=== PATIENT | female | born 1960 | race Two or more races ===

== ENCOUNTER → 2021-06-16 | Outpatient (CLI) | payer OTHER | END | disposition home or self-care (01) | LOC: XYW 13:10 | PROVIDERS: ATTEND Internal Medicine | DX: I10 Essential (primary) hypertension (principal); R07.9 Chest pain, unspecified | CPT/HCPCS: 93306 ==

== ENCOUNTER → 2021-07-13 | Outpatient (CLI) | payer OTHER ==
[2021-07-13 11:24] LABS: Eosinophils # (auto) 0.1 10 ^3/uL (0-0.8); Monocytes # (auto) 0.5 10 ^3/uL (0-1.3); Red Cell Distribution Width 17.5 % (11.8-14.3)
[2021-07-13 11:27] LABS: Basophils # (auto) 0 10 ^3/uL (0-0.2); Basophils % (auto) 0.6 % (0.0-2.0); Eosinophils % (auto) 1.8 % (0.0-7.0); Hematocrit 30.5 % (36.0-46.0); Hemoglobin 9.8 g/dL (12.2-16.2); Mean Corpuscular Hemoglobin 24.8 pg (28.0-32.0); Mean Corpuscular Hgb Conc. 32.2 g/dL (32.0-36.0); Mean Corpuscular Volume 76.8 fL (80.0-100.0); Monocytes % (auto) 6.9 % (0.0-12.0); Neutrophils # (auto) 4.3 10 ^3/uL (1.6-8.6); Neutrophils % (auto) 61.7 % (37.0-80.0); Red Blood Cells 3.97 10^6/uL (4.0-5.20); White Blood Cell 6.9 10^3/uL (4.4-10.8)
[2021-07-13 11:31] LABS: Urine Bacteria NONE SEEN /hpf (None Seen); Urine Blood Negative /uL (Negative); Urine Specific Gravity 1.009 (1.001-1.035); Urine WBC <1 /hpf (0 - 5)
[2021-07-13 12:19] LABS: Potassium 4.2 mmol/L (3.5-5.1)
[2021-07-13 12:29] LABS: Albumin 3.3 g/dL (3.4-5.0); BUN/Creatinine Ratio 11.9; Bilirubin, Total 0.3 mg/dL (0.2-1.0); CRP High Sensitivity 0.44 mg/dL (< 0.3); Calcium 8.6 mg/dL (8.5-10.1); Total Protein 6.9 g/dL (6.4-8.2)
== END | disposition home or self-care (01) ==
LOC: LAB 10:08
PROVIDERS: ATTEND Internal Medicine Rheumatology
DX: M32.10 Systemic lupus erythematosus, organ or system involvement unspecified (principal); R94.5 Abnormal results of liver function studies
CPT/HCPCS: 36415; 80053; 81001; 85025; 85652; 86141

== ENCOUNTER → 2021-07-23 | Outpatient (CLI) | payer OTHER | END | disposition home or self-care (01) | LOC: LAB 13:14 | PROVIDERS: ATTEND Internal Medicine | DX: Z12.11 Encounter for screening for malignant neoplasm of colon (principal); I10 Essential (primary) hypertension | CPT/HCPCS: 36415; 82043; 82550 ==

== ENCOUNTER → 2021-07-29 | Outpatient (CLI) | payer OTHER ==
[~2021-07-29] MED LIST: ALBUAER3 IN; ATOR20TA PO; BACL20TA PO; DICL50TA4 PO; FLUT1SPR5; GABA400C PO; METF-370 PO; METO25TA5 PO; NALO4SPR2; NORT25CA PO; OXYC325T14 PO; PANT1INJ3 PO; QUET1TAB11 PO; SUMA50TA2 PO; TOPI100T68 PO; TRAZ100T3 PO; VENL150C58 PO; VENL75CA78 PO
== END | disposition home or self-care (01) ==
LOC: LAB 12:00
PROVIDERS: ATTEND Internal Medicine
DX: Z12.11 Encounter for screening for malignant neoplasm of colon (principal); I10 Essential (primary) hypertension; E78.5 Hyperlipidemia, unspecified
CPT/HCPCS: 82270

== ENCOUNTER 2021-07-31 13:17 | Day surgery (SDC) | payer OTHER ==
[2021-07-29 11:27] LABS: Basophils # (auto) 0 10 ^3/uL (0-0.2); Eosinophils # (auto) 0.2 10 ^3/uL (0-0.8); Hemoglobin 10.4 g/dL (12.2-16.2); Monocytes # (auto) 0.4 10 ^3/uL (0-1.3)
[2021-07-29 11:29] LABS: Basophils % (auto) 0.7 % (0.0-2.0); Eosinophils % (auto) 2.4 % (0.0-7.0); Lymphocytes # (auto) 2.3 10 ^3/uL (0.4-5.4); Lymphocytes % (auto) 34.4 % (10.0-50.0); Mean Corpuscular Hemoglobin 24.2 pg (28.0-32.0); Mean Corpuscular Hgb Conc. 31.6 g/dL (32.0-36.0); Mean Corpuscular Volume 76.5 fL (80.0-100.0); Monocytes % (auto) 6.1 % (0.0-12.0); Neutrophils # (auto) 3.8 10 ^3/uL (1.6-8.6); Neutrophils % (auto) 56.4 % (37.0-80.0); Red Blood Cells 4.31 10^6/uL (4.0-5.20); Red Cell Distribution Width 17.2 % (11.8-14.3); White Blood Cell 6.7 10^3/uL (4.4-10.8)
[2021-07-29 11:41] LABS: INR 0.99 (0.9-1.15); Partial Thromboplastin Time 27.1 sec (23.6-33.0)
[2021-07-29 11:54] LABS: Potassium 3.8 mmol/L (3.5-5.1)
[2021-07-29 11:59] LABS: Albumin 3.4 g/dL (3.4-5.0); BUN/Creatinine Ratio 9.3; Bilirubin, Total 0.2 mg/dL (0.2-1.0); Calcium 8.9 mg/dL (8.5-10.1); Total Protein 7.1 g/dL (6.4-8.2)
[~2021-07-31] VITALS: Ht 160 cm; Wt 105.7 kg
[2021-07-31] MEDS ORDERED: LIDOCAINE VISCOUS 2% 15ML UD ONE (13:56)
[2021-07-31] MEDS: fentaNYL CITRATE 100 MCG/2 ML VL ONE ×5 (14:04→14:28)
[2021-07-31] MEDS: diphenhdrAMINE HCL 50 MG/1 ML VL ONE ×2 (14:04→14:18)
[2021-07-31] MEDS: MIDAZOLAM HCL 5 MG/ML-1ML VIAL ONE ×4 (14:04→14:18)
[2021-07-31 15:00] VITALS: BP 124/57
== END 2021-07-31 15:30 | disposition home or self-care (01) ==
LOC: GI 13:17
PROVIDERS: ATTEND Internal Medicine Gastroenterology
DX: R19.4 Change in bowel habit (principal); K57.30 Diverticulosis of large intestine without perforation or abscess without bleeding; K64.8 Other hemorrhoids; K63.89 Other specified diseases of intestine; K21.9 Gastro-esophageal reflux disease without esophagitis; K29.50 Unspecified chronic gastritis without bleeding; K44.9 Diaphragmatic hernia without obstruction or gangrene; F41.9 Anxiety disorder, unspecified; F32.A Depression, unspecified; G47.30 Sleep apnea, unspecified; F17.200 Nicotine dependence, unspecified, uncomplicated; G43.909 Migraine, unspecified, not intractable, without status migrainosus; Z90.710 Acquired absence of both cervix and uterus; Z98.890 Other specified postprocedural states; Z79.899 Other long term (current) drug therapy; Z20.822 Contact with and (suspected) exposure to COVID-19
CPT/HCPCS: 36415; 43239; 45378; 80053; 85025; 85610; 85730; 88305; 88342; J1200; J2250; J3010; J7030; U0003; 99152; 99153

== ENCOUNTER → 2021-08-06 | Outpatient (CLI) | payer OTHER ==
[~2021-08-06] VITALS: Ht 160 cm; Wt 102.1 kg
[~2021-08-06] MED LIST changes: +ADENOSINE 86 MG in GIVE UN-DILUTED 0 ML IV ONE
== END | disposition home or self-care (01) ==
LOC: XYW 08:13
PROVIDERS: ATTEND Internal Medicine
DX: R07.9 Chest pain, unspecified (principal); R00.2 Palpitations; E78.5 Hyperlipidemia, unspecified; Z87.891 Personal history of nicotine dependence
CPT/HCPCS: 78452; 93017; A9500; J0153

== ENCOUNTER → 2021-08-06 | Outpatient (CLI) | payer OTHER ==
[~2021-08-06] MED LIST changes: -ADENOSINE 86 MG in GIVE UN-DILUTED 0 ML IV ONE
[2021-08-06 11:17] LABS: Amphetamine Screen, Urine NEGATIVE (NEGATIVE); Barbiturate Scree,Urine NEGATIVE (NEGATIVE); Benzodiazephine Screen, Urine NEGATIVE (NEGATIVE); Cannabinoid Screen, Urine NEGATIVE (NEGATIVE); Cocaine Screen, Urine NEGATIVE (NEGATIVE); Opiate Scree,Urine NEGATIVE (NEGATIVE); Phencyclidine Screen, Urine NEGATIVE (NEGATIVE)
== END | disposition home or self-care (01) ==
LOC: LAB 10:02
PROVIDERS: ATTEND Internal Medicine
DX: D64.9 Anemia, unspecified (principal); E78.5 Hyperlipidemia, unspecified; E66.01 Morbid (severe) obesity due to excess calories; F32.1 Major depressive disorder, single episode, moderate
CPT/HCPCS: 36415; 80307; 82306; 83036; 84443

== ENCOUNTER → 2021-10-19 | Outpatient (CLI) | payer OTHER ==
[2021-10-19 15:37] LABS: Urine Bacteria FEW /hpf (None Seen); Urine Blood Negative /uL (Negative); Urine Mucus FEW (None Seen); Urine Specific Gravity 1.022 (1.001-1.035); Urine WBC 3 /hpf (0 - 5)
[2021-10-19 15:40] LABS: Basophils # (auto) 0 10 ^3/uL (0-0.2); Basophils % (auto) 0.5 % (0.0-2.0); Eosinophils # (auto) 0.2 10 ^3/uL (0-0.8); Eosinophils % (auto) 1.7 % (0.0-7.0); Hemoglobin 11.1 g/dL (12.2-16.2); Lymphocytes # (auto) 2.3 10 ^3/uL (0.4-5.4); Lymphocytes % (auto) 26.3 % (10.0-50.0); Mean Corpuscular Hemoglobin 26.3 pg (28.0-32.0); Mean Corpuscular Hgb Conc. 31.7 g/dL (32.0-36.0); Mean Corpuscular Volume 83.1 fL (80.0-100.0); Monocytes # (auto) 0.6 10 ^3/uL (0-1.3); Monocytes % (auto) 7.1 % (0.0-12.0); Neutrophils # (auto) 5.6 10 ^3/uL (1.6-8.6); Neutrophils % (auto) 64.4 % (37.0-80.0); Red Blood Cells 4.22 10^6/uL (4.0-5.20); Red Cell Distribution Width 23.3 % (11.8-14.3); White Blood Cell 8.7 10^3/uL (4.4-10.8)
[2021-10-19 16:04] LABS: Albumin 3.5 g/dL (3.4-5.0); Calcium 8.9 mg/dL (8.5-10.1); Potassium 3.5 mmol/L (3.5-5.1)
[2021-10-19 16:09] LABS: BUN/Creatinine Ratio 11.8; Bilirubin, Total 0.2 mg/dL (0.2-1.0); CRP High Sensitivity 0.62 mg/dL (< 0.3); Total Protein 6.8 g/dL (6.4-8.2)
== END | disposition home or self-care (01) ==
LOC: LAB 14:53
PROVIDERS: ATTEND Internal Medicine
DX: M32.10 Systemic lupus erythematosus, organ or system involvement unspecified (principal); E11.9 Type 2 diabetes mellitus without complications; E78.5 Hyperlipidemia, unspecified; I10 Essential (primary) hypertension
CPT/HCPCS: 36415; 80053; 81001; 82043; 84443; 85025; 86141

== ENCOUNTER 2022-01-20 07:01 | Day surgery (SDC) | payer OTHER, MEDICAID ==
[2022-01-18 12:20] LABS: Basophils # (auto) 0 10 ^3/uL (0-0.2); Basophils % (auto) 0.4 % (0.0-2.0); Eosinophils # (auto) 0.1 10 ^3/uL (0-0.8); Eosinophils % (auto) 0.7 % (0.0-7.0); Hematocrit 38.9 % (36.0-46.0); Hemoglobin 12.9 g/dL (12.2-16.2); Lymphocytes # (auto) 1.7 10 ^3/uL (0.4-5.4); Lymphocytes % (auto) 19.5 % (10.0-50.0); Mean Corpuscular Hemoglobin 28.2 pg (28.0-32.0); Mean Corpuscular Volume 85.4 fL (80.0-100.0); Monocytes # (auto) 0.3 10 ^3/uL (0-1.3); Monocytes % (auto) 3.5 % (0.0-12.0); Neutrophils # (auto) 6.5 10 ^3/uL (1.6-8.6); Neutrophils % (auto) 75.9 % (37.0-80.0); Red Blood Cells 4.56 10^6/uL (4.0-5.20); Red Cell Distribution Width 14.7 % (11.8-14.3); White Blood Cell 8.5 10^3/uL (4.4-10.8)
[2022-01-18 12:40] LABS: INR 0.95 (0.9-1.15); Partial Thromboplastin Time 28.3 sec (24.6-33.4)
[2022-01-18 13:06] LABS: Albumin 3.6 g/dL (3.4-5.0); BUN/Creatinine Ratio 6.7; Bilirubin, Total 0.3 mg/dL (0.2-1.0); Calcium 9.2 mg/dL (8.5-10.1); Potassium 4.3 mmol/L (3.5-5.1); Total Protein 7.4 g/dL (6.4-8.2)
[~2022-01-20] VITALS: Ht 160 cm; Wt 90.3 kg
[2022-01-20] VITALS (8 sets, daily range): BP systolic 94–109; BP diastolic 43–59
[~2022-01-20 07:01] MED LIST changes: +DEXL60CA4 PO; -DICL50TA4 PO; -GABA400C PO; +HYDR-4795 PO; +LURA1TAB PO; -NORT25CA PO; -OXYC325T14 PO; -PANT1INJ3 PO
[2022-01-20] MEDS ORDERED: IOHEXOL 350 MG/ML 100ML IJ ONE (09:13)
[2022-01-20] MEDS ORDERED: ANGIOMAX 250 MG VIAL IV ONE (10:56)
[2022-01-20] MEDS ORDERED: fentaNYL CITRATE 100 MCG/2 ML VL ONE (10:56)
[2022-01-20] MEDS ORDERED: HEPARIN SODIUM (PORCINE) 5000 UNITS/ML 1ML VIAL ONE (10:56)
[2022-01-20] MEDS ORDERED: VERAPAMIL 2.5MG/ML INJ 2ML VIAL IV ONE (10:56)
[2022-01-20] MEDS ORDERED: SODIUM CHL 0.9% 0 ML ONE (10:57)
[2022-01-20] MEDS ORDERED: MIDAZOLAM HCL 2MG/2ML 2ml VIAL (1mg/ml) ONE (10:57)
[2022-01-20] MEDS ORDERED: IODIXANOL 320MG/ML 100ML BTL IV ONE ×2 (11:03→11:30)
[2022-01-20] MEDS ORDERED: LIDOCAINE 2%HCL (LOCAL ANESTH.) INJ 20ML MDV ONE (11:04)
== END 2022-01-20 14:00 | disposition home or self-care (01) ==
LOC: CATH 07:01
PROVIDERS: ATTEND Internal Medicine
DX: R07.9 Chest pain, unspecified (principal); R07.89 Other chest pain; R94.39 Abnormal result of other cardiovascular function study
CPT/HCPCS: 36415; 80053; 85025; 85610; 85730; 93458; C1769; C1887; C1894; J1644; J2250; J3010; Q9967; U0003; 99152; 99153

== ENCOUNTER 2025-02-19 08:17 | Inpatient (IN) | payer MEDICAID, OTHER ==
[~2025-02-19] VITALS: Ht 160 cm; Wt 95.2 kg
[~2025-02-19 08:17] MED LIST changes: +ARIP2TAB PO; +ATOG10TA PO; -BACL20TA PO; +BIOT5TAB4 PO; +BUPR-133 PO; +CETI10TA2 PO; +CYAN50008 PO; +CYCL-837 PO; +DULO20CA PO; +FAMO20TA10 PO; +LEFL10TA17 PO; -LURA1TAB PO; +METH2.5T PO; +MULT-1018 PO; +NITR0.4S29 SL; +NORT25CA PO; +OXYB10GE TOP; -QUET1TAB11 PO; +SEMA2INJ3 SC; +SULF500T37 PO; -SUMA50TA2 PO; +TRAZ-228 PO; -TRAZ100T3 PO; +TURM500C3 OR; +[UNRECOGNIZED DRUG - CODE] OR
--- NOTE | 2025-02-19 08:23 | DVHHP2 ---
Admitting Diagnosis: cervical spinal stenosis with neck pain and radiculopathy History of Present Illness Home Meds Reported Medications Biotin (Vitamin H) (Biotin) 5 Mg Tab, PO, TAB 02/18/25 Multiple Vitamin (Multivitamins) Tab, PO DAILY, #90 TAB 3 Refills 02/18/25 Mis Natural Products (GLUCOSAMINE CHONDROITIN D) Dbl Str Tab, OR, TAB 02/18/25 Cyanocobalamin (B12 Fast Dissolve) 5,000 Mcg Tab, PO, TAB 02/18/25 Curcuma Longa (Turmeric) Extra (TURMERIC) 500 Mg Cap, OR, CAP 02/18/25 Sulfasalazine (Sulfasalazine) 500 Mg Tab, 500 MG PO, TAB 02/18/25 Aripiprazole (Abilify) 2 Mg Tab, PO, TAB 02/18/25 Bupropion Hcl (Bupropion Hcl Er) 150 Mg Tab, PO, TAB 02/18/25 Methotrexate (Methotrexate) 2.5 Mg Tab, 8 TAB PO QWEEKLY, #32 TAB 2 Refills 02/18/25 Duloxetine Hcl (Cymbalta) 20 Mg Cap, PO, CAP 02/18/25 Famotidine (PEPCID TABLET) 20 Mg Tb, PO BID, #60 TAB 5 Refills 02/18/25 Leflunomide (Leflunomide) 10 Mg Tab, PO, TAB 02/18/25 Nortriptyline Hcl (PAMELOR CAPSULE) 25 Mg Cp, PO QPM, #30 CAP 3 Refills 02/18/25 Semaglutide (Ozempic) 2 Mg/3 Ml Inj, SC, INJ 02/18/25 Atogepant (Qulipta) 10 Mg Tab, PO, TAB 02/18/25 Cyclobenzaprine Hcl (Cyclobenzaprine Hcl) 5 Mg Tab, PO QPM, #30 TAB 02/18/25 Oxybutynin Chloride (Gelnique) 10 % Gel, TOP DAILY, #90 PACK 3 Refills 02/18/25 Nitroglycerin (Nitrostat) 0.4 Mg Sub, SL, INJ 02/18/25 Cetirizine Hcl (Kls Aller-Isabella) 10 Mg Tab, PO DAILY, #30 TAB 3 Refills 02/18/25 Hydrocodone-Acetaminophen (Hydrocodone Bitartrate/AC 7.5-325 mg) 1 Tab Tab, 1 TAB PO TIDP PRN for PAIN SCALE 7 THRU 10, TAB 01/18/22 Dexlansoprazole (Dexilant) 60 Mg Cap, 60 MG PO DAILY for GERD, CAP 01/18/22 Metoprolol Tartrate (Metoprolol Tartrate) 25 Mg Tab, 25 MG PO BIDAC for HTN for 30 Days, MG 01/18/22 Metformin Hydrochloride (Metformin Hcl) 500 Mg Tab, 500 MG PO DAILY for DIABETES, TAB 07/30/21 Venlafaxine Hcl (Venlafaxine Hcl Er) 150 Mg Cap, 150 MG PO QAM for ANXIETY, CAP 07/30/21 Venlafaxine Hcl (Venlafaxine Hcl Er) 75 Mg Cap, 75 MG PO QPM for ANXIETY, CAP 07/30/21 Trazodone Hcl (Trazodone Hcl) 100 Mg Tab, 100 MG PO QPM for DEPRESSION, TAB 07/30/21 Topiramate (Topiramate) 100 Mg Tab, 100 MG PO BID for DEPRESSION, TAB 07/30/21 Naloxone HCl (Narcan) 4 Mg/0.1 Ml Spr, 4 MG NA PRN for NORCO OVERDOSE, SPRAY 07/30/21 Atorvastatin Calcium (Lipitor) 20 Mg Tab, 20 MG PO QPM for HYPERLIPIDEMIA, TAB 07/30/21 Fluticasone Propionate (Nasal) (Flonase Allergy Relief) 50 Mcg/Act Spr, 50 MCG NA for ALLERGIES, SPRAY 07/30/21 Albuterol Sulfate (VENTOLIN MDI) 90 Mcg Ih, 2 PUFF IN Q4HPRN for ASTHMA, INH 07/30/21 Neck Pain Radiation: Head, Upper extremity Modifying Factors for Neck Nixon: None Associated Symptoms of Neck Pa: Muscle spasms, Numbness in upper extremi, Numbness in fingers, Tingling in fingers, Sensory loss, Motor loss Review of Systems Constitutional: No symptom reported Ears, Nose, & Throat: No symptom reported Eyes: No symptom reported Pulmonary/Respiratory: No symptom reported Cardiovascular: No symptom reported Gastrointestinal: No symptom reported Genitourinary: No symptom reported Musculoskeletal: Neck pain Skin: No symptom reported Endocrine: No symptom reported Hemotologic/Lymphatic: No symptom reported H&P Exam General Appeara: Well developed, Well nourished, Normal Appearance Head Exam: Normal inspection Neck Exam: Normal inspection, Non-tender, Normal alignment Eye Exam: bilateral eye Normal inspection, bilateral eye PERRL, bilateral eye EOMI Ear Exam: bilateral ear Auricle normal, bilateral ear Canal normal, bilateral ear TM normal Nasal Exam: Normal inspection Mouth: Normal Inspection Pulmonary/Respiratory: Normal inspection, Normal breath sounds, Chest non- tender, Lungs clear Cardiovascular/Chest: Normal inspection, Regular rate, Normal Rhythm Abdominal Exam: Normal bowel sounds, Soft, No tenderness, No hepatospenomegaly, No masses Rectal Exam: Deferred, Normal inspection Back Exam: Left CVA tenderness Pelvic Exam: Not done Male Genital Exam: Not done Shoulder Exam: Normal inspection, Non-tender, Normal ROM Elbow/Forearm Exam: Normal inspection, Non-tender, Normal ROM Wrist Exam: Normal inspection, Non-tender, Normal ROM Hand Exam: Normal inspection, Non-tender, Normal ROM Hip exam: Normal inspection, Non-tender, Normal range of motion Legs: bilateral leg non-tender, bilateral leg normal inspection, bilateral leg normal range of motion, bilateral leg no evidence of injury Knees: bilateral knee non-tender, bilateral knee normal inspection, bilateral knee normal range of motion, bilateral knee no evidence of injury Ankle Exam: bilateral ankle Normal inspection, bilateral ankle Non-tender, bilateral ankle Normal range of motion, bilateral ankle No evidence of injury Foot: bilateral foot non-tender, bilateral foot normal inspection, bilateral foot normal range of motion, bilateral foot no evidence of injury Tendon/ Neuro: 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 TECHNIQUE: Multiple axial CT images of the spine were obtained using bone algorithm. Axial and coronal reformatting was done. Bone and soft tissue windows were reviewed. FINDINGS: No CT evidence of definite acute fracture, spinal dislocation, or significant appearing acute subluxation is seen. Prior C5-C6 anterior spinal fixation with disc spacer. No severe spinal canal or foraminal stenosis. No evidence of epidural collection. Reversal of the cervical spine lordosis due to postsurgical change at C5-C6 level. C6-C7 left foraminal narrowing by the uncovertebral arthropathy and facet arthropathy. The visualized paraspinal soft tissues are grossly unremarkable. IMPRESSION: 1. No definite CT evidence of acute fracture or dislocation of the bony cervical spine. 2. C5-C6 expected postsurgical changes without significant spinal canal or foraminal narrowing Assessment/Plan Primary Diagnosis cervical spinal stenosis with severe neck pain and radiculopathy Plan admit for elective cervical spine surgery Plan discussed with: Patient MANUELITO VIRK MD Feb 19, 2025 08:23
[2025-02-19] MEDS ORDERED: ceFAZolin 2 GM/D5W50ml 50 ML IV ONE (08:45)
[2025-02-19] MEDS ORDERED: TRANEXAMIC ACID 10 ML ONE ×2 (09:21→09:22)
[2025-02-19] MEDS ORDERED: HYDROmorphone HCL 2 MG/ML VL/or syr ONE (10:42)
[2025-02-19] MEDS ORDERED: MIDAZOLAM HCL 2MG/2ML 2ml VIAL (1mg/ml) ONE (10:42)
[2025-02-19] MEDS ORDERED: fentaNYL CITRATE 5 ML ONE (10:42)
[2025-02-19] MEDS ORDERED: PROPOFOL 10 MG/ML 20 ML IV ONE (10:42)
[2025-02-19] MEDS ORDERED: fentaNYL CITRATE 100 MCG/2 ML VL ONE ×2 (10:42)
[2025-02-19] MEDS ORDERED: ONDANSETRON HCL 4 MG/2 ML VIAL IV PRN ×2 (11:30→13:00)
[2025-02-19] MEDS ORDERED: MORPHINE SULFATE 4 MG/ML SYR/VIAL IV PRN (11:30)
[2025-02-19] MEDS ORDERED: MIDAZOLAM HCL 2MG/2ML 2ml VIAL (1mg/ml) IV PRN (11:30)
[2025-02-19] MEDS ORDERED: hydrALAZINE HCL 20 MG/ML VL IV PRN (11:30)
[2025-02-19] MEDS ORDERED: ACCU-CHEK COMFORT CURVE STRIP VI ONE (11:30)
--- NOTE | 2025-02-19 12:55 | DVHOP2 ---
Operative Report - 2 Report Details Date: 02/19/25 Preop Diagnosis: cervical spinal stenosis at C6/7 causing incapacitating neck pain and radiculopathy Postop Diagnosis: same Surgeon: Tomás Saleh MD Foam Rubber Molder: Meghan Aldana NP Anesthesiologist: General Anesthesia: General Consent: The patient was informed of the risks and benefits of the procedure. These include but are not limited to complications of anesthesia, postoperative infection, incomplete relief of symptoms, recurrence of symptoms, damage to blood vessels, nerves and tendons, deep venous thrombosis, pulmonary embolism and possible need for repeat surgery in the future. Name of Procedure Performed see detailed note Procedure Details Procedure Details: Pre Op Diagnosis: Cervical Degenerative Disk Disease and Spinal Stenosis at C6/7 Causing incapacitating neck pain, radiculopathy and progressive neurologic deficit Post Op Diagnosis: same Procedure: Cervical 6 to 7 anterior cervical discectomy with Cervical 6-7 foraminotomies and facetectomies to decompress the spinal canal and Cervical 7 nerve roots Cervical 6-7 anterior cervical Fusion Cervical 6-7anterior cervical instrumentation using X-Tant Irix-C Standalone Device Cervical 6-7 placement of allograft prosthetic device Surgeon: Tomás Saleh MD Anesthesia: General Assist: Meghan Aldana NP Fluids and EBL: see anesthesia note Procedure Note: The patient was seen in the Pre-anesthesia Care Unit and the site of the incision was initialed by me with a felt tipped marker. All questions by the patient were answered to the satisfaction of the patient and the chart was reviewed. The patient was taken to the operating room and placed supine on the [facility] Flat top table. General anesthesia was induced. Neuromonitoring leads were placed. A rolled towel was placed between the shoulder blades to hyperextend out the chest which will allow better exposure of the cervical spine. Halter traction to 10 pounds was placed. The arms were padded and adducted to the patients side making sure all pulses in the hands were present. Tape traction was undertaken on the shoulders to give us better radiographic exposure of the distal cervical spine. A gel-pad was placed under the occiput and 5 degrees of extension was placed on the neck without adverse effects to the patient. The anterior neck was prepped and draped. Pre-operative antibiotics were given 30 minutes prior to the start of the procedure. A c-arm fluoroscope was used to lelo out the incision site. At this time, a time out was taken per usual protocol. Due to the case being a 1 level case, a transverse incision was marked out starting at the midline and going left to the middle of the sternocleidomastoid muscle at the level of the cricoid cartilage. Next an incision was made through the skin with a 15 blade scalpel through the subcutaneous tissue down to the platysma. Self-retainers were placed. The platysma was incised along the longitudinal border with a Metzenbaum scissors. Blunt dissection was made through the deep cervical and pre-tracheal fascia taking care to protect the carotid sheath laterally and the Trachea/esophagus medially. The dissection was carried down to the pre-vertebral fascia. Any crossing vessels were ligated using a vascular clip or coagulated with a bovie electrocautery. An esophageal retractor was next used to retract the trachea/esophagus and a bent [address] through the anterior annulus of the cervical disk and a lateral C-arm fluoroscopic image was taken to confirm that we were at the correct level. Next, bovie electrocautery was used to expose the bones of cervical 6 and 7 and bipolar electrocautery was used to lift up the Longus Colli and Capitus muscles. Black-Belt Self Retainers were used to retract the longus colli and capitus muscles bilaterally as well as the trachea/esophagus to the right and the carotid sheath to the left. Serrated thin set retaining retractors were placed to the right and lift and smooth thin self retaining retractors were placed proximally and distally and a needle was placed again in the anterior annulus of the disk and an image taken to confirm the correct level. At this point, an 11 blade scalpel incised the anterior annulus of the cervical 6/7 disc. Next, straight and curved curettes removed the remainder of the disks all the way down to the posterior longitudinal ligament. Carefully, a Kerison number one rongeur incised the posterior longitudinal ligament at the lateral end of the cervical 6/7 disk and using a micro, blunt tip nerve hook to separate the posterior longitudinal ligament from the dura, alternating 1 mm and 2 mm Kerison rongeurs removed the posterior longitudinal ligament. Next, Kerison 1mm and 2 mm rongeurs were alternated to get under the uncinate processes and undercut them to perform foraminotomies and facetectomies at the cervical 6/7 levels to decompress the central canal and cervical 7 nerve roots. Next, the c-arm fluoroscope was wheeled into the field and a lateral image was obtained. Increasing size graft trials were used starting at a 5 mm thick size until the proper tension in the disk space and height catholic obtained. We then placed final free standing cages at cervical 6/7 . Both inter body prosthetic device was 6mm in thickness. Satisfactory placement was confirmed in the AP and lateral views using a C-arm fluoroscope. Copious irrigation of the wound with sterile saline and all bleeding was controlled before closure initiated. At this point, a 10 Malay round K[address] Drain was place deep to the Platysma muscle and the Platysma was approximated with one interrupted 0-Vicryl suture. The subcutaneous tissue was closed with interrupted 2-0 vicryl sutures and the skin was closed with govind. Sterile dressings were placed and a cervical collar placed, the patient extubated, transferred to the stretcher and taken to the Recovery Room in unremarkable condition. Condition Good Disposition Still a Patient TOMÁS SALEH MD Feb 19, 2025 12:55
[2025-02-19] MEDS ORDERED: NITROGLYCERIN 0.4 MG SL TAB SL PRN (13:00)
[2025-02-19] MEDS ORDERED: ACETAMINOPHEN 325 MG TAB PO PRN (13:00)
[2025-02-19] MEDS ORDERED: MORPHINE SULFATE INJ 2 MG/ml SYRG IV PRN ×2 (13:00)
[2025-02-19 13:05] VITALS: PULSE 76; RESP 11; O2SAT 99
[2025-02-19] MEDS: HYDROmorphone HCL 2 MG/ML VL/or syr IV PRN (13:24)
--- NOTE | 2025-02-19 13:33 | DVH ---
C-ARM FLUOROSCOPY: PROCEDURE: ACDF FLUOROSCOPY TIME: 76 seconds Air Kerma: 33.2 mgy FINDINGS: Spot intraoperative C arm radiographs demonstrating ACDF IMPRESSION: Please refer to surgical report for detailed findings.
[2025-02-19 14:39] VITALS: PULSE 82; RESP 16; O2SAT 97
[2025-02-19] MEDS: CYCLOBENZAPRINE HCL 10 MG TAB PO SCH (16:36)
[2025-02-19] MEDS: MORPHINE SULFATE 4 MG/ML SYR/VIAL IV PRN (16:37)
[2025-02-19 17:17] VITALS: BP 105/57; PULSE 76; RESP 18; TEMP 97; O2SAT 97
[2025-02-19] MEDS: ceFAZolin 1GM/50ML 50 ML IV SCH (17:48)
[2025-02-19 20:00] VITALS: PULSE 96
[2025-02-19 21:00] VITALS: BP 123/66; PULSE 85; RESP 18; TEMP 98.2; O2SAT 95
[2025-02-19] MEDS: DOCUSATE SOD 100 MG CAP PO SCH (21:41)
[2025-02-19] MEDS: HYDROcodone-ACET 10/325MG TAB PO PRN (21:43)
[2025-02-20] VITALS (8 sets, daily range): BP systolic 119–143; BP diastolic 64–80; PULSE 75–102; RESP 18–19; TEMP 98.1–98.6; O2SAT 95–98
[2025-02-20] MEDS: D5W/SOD CHLO 0.9% 1,000 ML IV SCH (02:35)
--- NOTE | 2025-02-20 11:26 | DVHPN2 ---
Progress Note - Surgical Date Seen: Feb 20, 2025 Post op day Post op day: 1 Subjective Patient reports: No new complaints, Feels better Review of Systems: NEURO:Normal (cervical radiculopathies) Objective Vital signs Vital Sign Date Time Temp Pulse Resp B/P (MAP) Pulse Ox O2 Delivery O2 Flow Rate FiO2 02/20/25 10:14 74 18 122/64 02/20/25 09:00 98.1 96 98.1 02/20/25 08:00 Room Air* 0 21 Total Intake and Output 02/19/25 02/19/25 02/20/25 15:00 23:00 07:00 Intake Total 110 ml 0 ml 540 ml Output Total 0 ml Balance 110 ml 0 ml 540 ml Medications Current Medications Medications Dose Ordered Sig/Laura Route Start Time Stop Time Status Last Admin Dose Admin Dextrose/Sodium Chloride 1,000 ml @ 100 mls/hr Q10H IV 02/19/25 13:00 02/20/25 02:35 100 MLS/HR Ondansetron HCl 4 mg Q4HP PRN IV 02/19/25 13:00 Acetaminophen 650 mg Q6HP PRN PO 02/19/25 13:00 Acetaminophen/ Hydrocodone Bitart 1 tab Q6HP PRN PO 02/19/25 13:00 02/19/25 21:43 1 TAB Morphine Sulfate 1 mg Q4HP PRN IV 02/19/25 13:00 Cancel Cyclobenzaprine HCl 10 mg TID PO 02/19/25 14:00 02/20/25 05:31 10 MG Docusate Sodium 100 mg BID PO 02/19/25 22:00 02/20/25 10:08 100 MG Cefazolin Sodium 50 ml @ 100 mls/hr Q8H IV 02/19/25 17:00 02/21/25 09:29 02/20/25 10:08 100 MLS/HR Nitroglycerin 0.4 mg Q5MINP PRN SL 02/19/25 13:00 Morphine Sulfate 2 mg Q30M PRN IV 02/19/25 13:00 Morphine Sulfate 1 mg Q4HPRN PRN IV 02/19/25 16:15 02/20/25 10:14 1 MG Examination: GENERAL:Normal, HEENT:Normal (Left lateral anterior cervical site incision), NECK:Normal, LUNGS:Normal (Patient experiencing expected postoperative), CVS:Normal (Tenderness), ABDOMEN:Normal, MSK:Normal, SKIN:Normal (Surgical site well approximated with govind), NEURO:Normal (patient verbalized vast improvment in preoperative symptoms), :Normal Problem List/Assessment/Plan Problems: (1) Acute post-operative pain (2) Muscle spasms of neck Assessment and Plan Events of today Patient has been able to get up with physical therapy and ambulate, patient has also ambulating on her own independently in the room for bathroom privileges Patient is tolerating meals- she does have a sore throat with swallowing. She is passing gas and voiding, has not had a bowel movement yet Drain output is minimal, we will discontinue drain today Plan to discharge patient tomorrow after a dose of Decadron 10mg to help sooth throat swelling Disposition: -home with home health -Discharge RX: Patient has already picked up her postoperative medications at her preop visit -Follow up appointment: with Dr Saleh her scheduled appointment [id number] [facility] [address] [place] [id number] -Pain: - IV pain meds post op day 1, with PO supplementation, goal is to progress weaning off IV medications and control pain with PO only. Intravenous medications for severe pain (PAIN 7-10) - P.O. analgesics:Tylenol 650MG (PAIN 1-3) oral medications for moderate pain (PAIN 4-6) - Muscle relaxers scheduled administration. This is a beneficial medications for the incisional pain as it is mostly related to muscle spasms. Please ensure the patient is getting her muscle relaxers as scheduled - Cepacol throat lozenges as needed for sore throat -Antibiotics Operative recommendations: -Postoperative dose:-Post operative antibiotics cefazolin 1 g IV piggyback every 8 hours x 48 hours total of 6 doses -DVT PPX: -Hold all chemical DVT/ blood thinners for 14 days postoperatively -use mechanical DVT PPX such as SCD's, ambulation -Activity: -Pending PT evaluation and patients progression -Sit at side of bed for meals -Goal: Ambulate independently and safely (may use assistive devices if needed) -Medical Therapy goals: -Afebrile- Patient may develop a expected post operative fever by day 2-3, this may not be accompanied with a elevation in WBC. if fever develops: Acetaminophen for fever. Albuterol nebulizer Tx every 12 hours for 24 hours to facilitate adequate lung expansion and prevent development of atelectasis. -Euglycemic: bloods sugars under 130mmol/L for optimal healing -Normotensive: Avoid events of hypertension. This helps to keep post operative healing intact and avoids destabilization of beneficial hemostatic coagulation. -Dressings -Anterior cervical patients: dressing may be changed PRN. If there is excessive bleeding, leaking, drainage at the drain site notify provider -Bowel management: -Colace 100mg bid -Diet: - patient tolerating within dietary limitations ( example: diabetic, Cardiac) -Incentive Spirometer: -10 x hour while awake, RN please educate and observe repeat demonstration, have IS at bedside POD #1 -X-rays: - none indicated at this time -Consults: -Physical Therapy evaluation, treatment recommendations, and discharge recommendations Call with questions Monique Martinez ACNP- Orthopaedic Spine Surgery nurse practitioner For Dr Andrew Saleh Patient was examined, chart reviewed, labs evaluated, and diagnostic studies and findings analyzed. Case was discussed with Dr. Tomás Saleh who formulated the plan of care. This medical document was created using an electronic medical record system with [employer] dictation system. Although this document has been carefully reviewed, there might still be some phonetic and typographical errors. These areas are purely typographical due to imperfections of the software programs, and do not reflect any compromise in the patient's medical care. Plan discussed with Plan discussed with: Patient, Other (Cristina BOOGIE, DR Singh) Visit Coding Surgery Date of Service if different f: Feb 20, 2025 Billing Provider: REINALDO MARTINEZ NP Surgery Visit Codes: NOT BILLABLE REINALDO MARTINEZ NP Feb 20, 2025 11:26
--- NOTE | 2025-02-20 15:37 | PRN ---
Misceleneous Note Note Note Keep your follow up appointment scheduled with Dr. Davalos Call for a appointment, or to change or confirm your appoinment [id number] [facility], [address], [place] [id number] You may shower and let the water run over your neck wound however you must pat it dry with sterile 4x4s gauze. Please do not use regular household towels. Keep your incision covered when you are out of your house or when you are wearing clothing that rub on your incision. He will also do not want to have a seatbelt rubbing on your incision. If you are at home and you have clothing that does not contact your incision you may leave it open to air. You may have some residual drainage from the drain site for the next 2-3 days which is normal it should be a very light pink or noemi color fluid. If it alyse nges or becomes bright red please call 911. REINALDO MARTINEZ NP Feb 20, 2025 15:37
--- NOTE | 2025-02-20 16:16 | DVHPN2 ---
Subjective Overnight events noted. Patient is complaining of scratchy throat. IV dexamethasone has been ordered by spine surgery. 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 Medications Current Medications Medications Dose Ordered Sig/Laura Route Start Time Stop Time Status Last Admin Dose Admin Dextrose/Sodium Chloride 1,000 ml @ 100 mls/hr Q10H IV 02/19/25 13:00 02/20/25 09:00 100 MLS/HR Ondansetron HCl 4 mg Q4HP PRN IV 02/19/25 13:00 Acetaminophen 650 mg Q6HP PRN PO 02/19/25 13:00 Acetaminophen/ Hydrocodone Bitart 1 tab Q6HP PRN PO 02/19/25 13:00 02/20/25 14:57 1 TAB Morphine Sulfate 1 mg Q4HP PRN IV 02/19/25 13:00 Cancel Cyclobenzaprine HCl 10 mg TID PO 02/19/25 14:00 02/20/25 14:53 10 MG Docusate Sodium 100 mg BID PO 02/19/25 22:00 02/20/25 10:08 100 MG Cefazolin Sodium 50 ml @ 100 mls/hr Q8H IV 02/19/25 17:00 02/21/25 09:29 02/20/25 10:08 100 MLS/HR Nitroglycerin 0.4 mg Q5MINP PRN SL 02/19/25 13:00 Morphine Sulfate 2 mg Q30M PRN IV 02/19/25 13:00 Morphine Sulfate 1 mg Q4HPRN PRN IV 02/19/25 16:15 02/20/25 10:14 1 MG Assessment/Plan Assessment/Plan 64-year-old female with a known history of diabetes mellitus type 2, hypertension, dyslipidemia, previous history of lumbar spine surgery x2, pre vious history of C-spine surgery presented to the hospital for elective procedure for cervical radiculopathy 1. Diabetes mellitus type 2 2. Hypertension 3. Dyslipidemia 4. Morbid obesity classII 5. Status post lumbar spine surgery in the past 6. Cervical radiculopathy status post C6-7 spine surgery -continue pain meds as needed, IV dexamethasone for throat inflammation, discharge plan. Plan discussed with: Patient My Orders Orders - MATT FULTON MD Procedure Category Date Status Time * Internal Medicine CONS 02/20/25 Transmitted Consult Problem List: (1) Acute post-operative pain (2) Muscle spasms of neck Date of Service: Feb 20, 2025 Billing Provider: MATT FULTON MD Common Visit Codes: NOT BILLABLE MATT FULTON MD Feb 20, 2025 16:16
[2025-02-21] VITALS (8 sets, daily range): BP systolic 115–146; BP diastolic 55–87; PULSE 60–108; RESP 18–20; TEMP 96.7–97.6; O2SAT 94–99
--- NOTE | 2025-02-21 15:33 | DVHDS2 ---
Discharge Summary Date of Admission Feb 19, 2025 at 12:47 Date of Discharge: Feb 21, 2025 Labs/Diagnostic Data: Laboratory Results Test 02/19/25 13:12 POC Glucose 112 mg/dl (70-106) Brief Hx & Hospital Course: 64-year-old female with a known history of diabetes mellitus type 2, hypertension, dyslipidemia, previous history of lumbar spine surgery x2, previous history of C-spine surgery presented to the hospital for elective procedure for cervical radiculopathy. Patient underwent successful C6-7 spine surgery. Postoperatively patient did fairly well. Patient does have known history of diabetes mellitus type 2, hypertension, dyslipidemia and morbid obesity classII, diet weight reduction Counseling has been discussed. Patient is cleared by spine surgery to be discharged with a close follow up as an outpatient. Condition at Discharge: Stable Final Diagnosis/Problems List 64-year-old female with a known history of diabetes mellitus type 2, hypertension, dyslipidemia, previous history of lumbar spine surgery x2, previous history of C-spine surgery presented to the hospital for elective procedure for cervical radiculopathy 1. Diabetes mellitus type 2 2. Hypertension 3. Dyslipidemia 4. Morbid obesity classII 5. Status post lumbar spine surgery in the past 6. Cervical radiculopathy status post C6-7 spine surgery Discharge Disposition: Home SNF Discharge Will this Physician continue t: No Discharge Instruct/Medications Diet: Cardiac 2g Na,low cholest Diet comment: 1800 ADA diet Activity: See Comment Activity comment: No driving, no signing legal documents, no playing on machinery while on narcotics Follow Up/Referral: Please follow up with the PCP and spine surgery in 1-2 weeks Medications: Medication as prescribed and reconciled Continued Medications: Albuterol Sulfate (Ventolin Mdi) 90 Mcg Ih 2 PUFF IN Q4HPRN for ASTHMA, INH Aripiprazole (Abilify) 2 Mg Tab Unknown Dose PO, TAB Atogepant (Qulipta) 10 Mg Tab Unknown Dose PO, TAB Atorvastatin Calcium (Lipitor) 20 Mg Tab 20 MG PO QPM for HYPERLIPIDEMIA, TAB Biotin (Vitamin H) (Biotin) 5 Mg Tab Unknown Dose PO, TAB Bupropion Hcl (Bupropion Hcl Er) 150 Mg Tab Unknown Dose PO, TAB Cetirizine Hcl (Kls Aller-Isabella) 10 Mg Tab Unknown Dose PO DAILY, #30 TAB 3 Refills Curcuma Longa (Turmeric) Extra (Turmeric) 500 Mg Cap Unknown Dose OR, CAP Cyanocobalamin (B12 Fast Dissolve) 5,000 Mcg Tab Unknown Dose PO, TAB Cyclobenzaprine Hcl (Cyclobenzaprine Hcl) 5 Mg Tab Unknown Dose PO QPM, #30 TAB Dexlansoprazole (Dexilant) 60 Mg Cap 60 MG PO DAILY for GERD, CAP Duloxetine Hcl (Cymbalta) 20 Mg Cap Unknown Dose PO, CAP Famotidine (Pepcid Tablet) 20 Mg Tb Unknown Dose PO BID, #60 TAB 5 Refills Fluticasone Propionate (Nasal) (Flonase Allergy Relief) 50 Mcg/Act Spr 50 MCG NA for ALLERGIES, SPRAY Hydrocodone-Acetaminophen (Hydrocodone Bitartrate/AC 7.5-325 mg) 1 Tab Tab 1 TAB PO TIDP PRN for PAIN SCALE 7 THRU 10, TAB Leflunomide (Leflunomide) 10 Mg Tab Unknown Dose PO, TAB Metformin Hydrochloride (Metformin Hcl) 500 Mg Tab 500 MG PO DAILY for DIABETES, TAB Methotrexate (Methotrexate) 2.5 Mg Tab 8 TAB PO QWEEKLY, #32 TAB 2 Refills Metoprolol Tartrate (Metoprolol Tartrate) 25 Mg Tab 25 MG PO BIDAC for HTN for 30 Days, MG Misc Natural Products (Glucosamine Chondroitin D) Dbl Str Tab Unknown Dose OR, TAB Multiple Vitamin (Multivitamins) Tab Unknown Dose PO DAILY, #90 TAB 3 Refills Naloxone HCl (Narcan) 4 Mg/0.1 Ml Spr 4 MG NA PRN for NORCO OVERDOSE, SPRAY Nitroglycerin (Nitrostat) 0.4 Mg Sub Unknown Dose SL, INJ Nortriptyline Hcl (Pamelor Capsule) 25 Mg Cp Unknown Dose PO QPM, #30 CAP 3 Refills Oxybutynin Chloride (Gelnique) 10 % Gel Unknown Dose TOP DAILY, #90 PACK 3 Refills Semaglutide (Ozempic) 2 Mg/3 Ml Inj Unknown Dose SC, INJ Sulfasalazine (Sulfasalazine) 500 Mg Tab 500 MG PO, TAB Topiramate (Topiramate) 100 Mg Tab 100 MG PO BID for DEPRESSION, TAB Trazodone Hcl (Trazodone Hcl) 100 Mg Tab 100 MG PO QPM for DEPRESSION, TAB Venlafaxine Hcl (Venlafaxine Hcl Er) 75 Mg Cap 75 MG PO QPM for ANXIETY, CAP Venlafaxine Hcl (Venlafaxine Hcl Er) 150 Mg Cap 150 MG PO QAM for ANXIETY, CAP Scheduled Albuterol Sulfate (Ventolin Mdi), 2 PUFF IN Q4HPRN, (Reported) Atorvastatin Calcium (Lipitor), 20 MG PO QPM, (Reported) Cetirizine Hcl (Kls Aller-Isabella), Unknown Dose PO DAILY, (Reported) Cyclobenzaprine Hcl (Cyclobenzaprine Hcl), Unknown Dose PO QPM, (Reported) Dexlansoprazole (Dexilant), 60 MG PO DAILY, (Reported) Famotidine (Pepcid Tablet), Unknown Dose PO BID, (Reported) Metformin Hydrochloride (Metformin Hcl), 500 MG PO DAILY, (Reported) Methotrexate (Methotrexate), 8 TAB PO QWEEKLY, (Reported) Metoprolol Tartrate (Metoprolol Tartrate), 25 MG PO BIDAC, (Reported) Multiple Vitamin (Multivitamins), Unknown Dose PO DAILY, (Reported) Naloxone HCl (Narcan), 4 MG NA PRN, (Reported) Nortriptyline Hcl (Pamelor Capsule), Unknown Dose PO QPM, (Reported) Oxybutynin Chloride (Gelnique), Unknown Dose TOP DAILY, (Reported) Topiramate (Topiramate), 100 MG PO BID, (Reported) Trazodone Hcl (Trazodone Hcl), 100 MG PO QPM, (Reported) Venlafaxine Hcl (Venlafaxine Hcl Er), 75 MG PO QPM, (Reported) Venlafaxine Hcl (Venlafaxine Hcl Er), 150 MG PO QAM, (Reported) Scheduled PRN Hydrocodone-Acetaminophen (Hydrocodone Bitartrate/AC 7.5-325 mg), 1 TAB PO TIDP PRN for PAIN SCALE 7 THRU 10, (Reported) Miscellaneous Medications Aripiprazole (Abilify), Unknown Dose PO, (Reported) Atogepant (Qulipta), Unknown Dose PO, (Reported) Biotin (Vitamin H) (Biotin), Unknown Dose PO, (Reported) Bupropion Hcl (Bupropion Hcl Er), Unknown Dose PO, (Reported) Curcuma Longa (Turmeric) Extra (Turmeric), Unknown Dose OR, (Reported) Cyanocobalamin (B12 Fast Dissolve), Unknown Dose PO, (Reported) Duloxetine Hcl (Cymbalta), Unknown Dose PO, (Reported) Fluticasone Propionate (Nasal) (Flonase Allergy Relief), 50 MCG NA, (Reported) Leflunomide (Leflunomide), Unknown Dose PO, (Reported) Misc Natural Products (Glucosamine Chondroitin D), Unknown Dose OR, (Reported) Nitroglycerin (Nitrostat), Unknown Dose SL, (Reported) Semaglutide (Ozempic), Unknown Dose SC, (Reported) Sulfasalazine (Sulfasalazine), 500 MG PO, (Reported) Discharge Statement: "Patient was advised to return to the ER or call 911 if any headaches, dizziness, shortness of breath, chest pain, abdominal pain, bleeding, fevers, or worsening of medical condition. Patient was counseled about treatment plan, medications, possible side effects, patientverbalized understanding. All questions were answered to the best of my ability. This discharge took greater then 30 minutes in planning, reviewing documentation, counseling the patient, and discussing with other team members." ASSESSMENT ASSESSMENT Assessment 64-year-old female with a known history of diabetes mellitus type 2, hypertension, dyslipidemia, previous history of lumbar spine surgery x2, previous history of C-spine surgery presented to the hospital for elective procedure for cervical radiculopathy 1. Diabetes mellitus type 2 2. Hypertension 3. Dyslipidemia 4. Morbid obesity classII 5. Status post lumbar spine surgery in the past 6. Cervical radiculopathy status post C6-7 spine surgery Date of Service: Feb 21, 2025 Billing Provider: MATT FULTON MD Common Visit Codes: NOT BILLABLE MATT FULTON MD Feb 21, 2025 15:33
== END 2025-02-21 18:20 | disposition home health service (06) | DRG 473 ==
LOC: SUR 08:17 → OVERFLOW 12:47 → TELE-CENTR 14:36
PROVIDERS: ADMIT Orthopaedic Surgery; ATTEND Orthopaedic Surgery
PROC: 01N10ZZ Release Cervical Nerve, Open Approach (ICD-10-PCS; 2025-02-19)
PROC: 00NW0ZZ Release Cervical Spinal Cord, Open Approach (ICD-10-PCS; 2025-02-19)
PROC: 0RB30ZZ Excision of Cervical Vertebral Disc, Open Approach (ICD-10-PCS; 2025-02-19)
PROC: 4A11X4G Monitoring of Peripheral Nervous Electrical Activity, Intraoperative, External Approach (ICD-10-PCS; 2025-02-19)
PROC: 0RG10A0 Fusion of Cervical Vertebral Joint with Interbody Fusion Device, Anterior Approach, Anterior Column, Open Approach (ICD-10-PCS; principal; 2025-02-19 10:49)
DX: M48.02 Spinal stenosis, cervical region (principal); E66.01 Morbid (severe) obesity due to excess calories; E11.9 Type 2 diabetes mellitus without complications; I10 Essential (primary) hypertension; E78.5 Hyperlipidemia, unspecified; M54.12 Radiculopathy, cervical region; M62.838 Other muscle spasm; G89.18 Other acute postprocedural pain; Z79.899 Other long term (current) drug therapy; Z68.37 Body mass index [BMI] 37.0-37.9, adult
CPT/HCPCS: 72040; 76000; 82962; 86850; 86900; 86901; 97116; 97163; 97530; G0378; J1100; J1956; J2250; J2704